=== PATIENT | female | born 1935 | race Caucasian/White ===

== ENCOUNTER 2016-08-25 23:23 | Emergency (ER) | payer MEDICARE ==
[~2016-08-25] VITALS: Ht 152.4 cm; Wt 39.0 kg
[~2016-08-25 23:23] MED LIST: ACTONEL35 MG PO; ATENOLOL25 MG PO; AZITHROMYCIN250 MG PO; CA CITRATE250 MG OR; COUMADIN5 MG PO; FISH OIL1000 MG PO; FLONASE NASAL50 MCG; FOLIC ACID400 MC1 OR; FUROSEMIDE40 MG PO; LEVOTHYROXIN50 MC1 PO; LISINOPRIL5 MG PO; MAXZIDE-2537.5 MG/TA PO; MUCINEX600 MG PO; MULTIVITAM10 OR; OCUVIT1 OR; RANITIDINE150 MG OR; TESSALON PER100 MG PO; VIT C250 MG PO; VITAMIN B COMPLEX; VITAMIN D1000 UNI2 PO; ZPAK OR
[2016-08-26] MEDS ORDERED: DIGOXIN0.125 MG PO (00:09)
[2016-08-26 01:15] VITALS: BP 118/58
== END 2016-08-26 01:15 | disposition left against medical advice (07) ==
LOC: ED 23:23
DX: R53.1 Weakness (principal); R06.02 Shortness of breath; I50.9 Heart failure, unspecified; I27.2 Other secondary pulmonary hypertension; I48.91 Unspecified atrial fibrillation; Z79.01 Long term (current) use of anticoagulants; Z95.2 Presence of prosthetic heart valve; Z91.19 Patient's noncompliance with other medical treatment and regimen

== ENCOUNTER 2016-08-28 08:19 | Emergency (ER) | payer MEDICARE ==
[2016-08-28] VITALS (7 sets, daily range): BP systolic 156–162; BP diastolic 65–70
[~2016-08-28] VITALS: Ht 152.4 cm; Wt 39.0 kg
[~2016-08-28 08:19] MED LIST changes: +DIGOXIN0.125 MG PO
[2016-08-28 08:53] LABS: HEMOGLOBIN 10.7 g/dl (12.0-16.0); IMMATURE GRANULOCYTES 0.9 % (0.0-1.0); MEAN CELL VOLUME 109.7 fL CALC (80.0-100.0); MEAN CORPUSCULAR HGB 34.5 pG CALC (26.0-32.0); MEAN CORPUSCULAR HGB CONC 31.5 g/L CALC (32.0-36.0); NEUT# 5.62 thou/uL (2.00-7.15); RED BLOOD COUNT 3.1 mill/uL (4.20-5.60); RED CELL DISTRI WIDTH 15.7 % (11.5-15.5)
[2016-08-28 09:09] LABS: ALBUMIN 4.4 g/dL (3.2-5.0); ALKALINE PHOSPHATASE 66 u/l (38-126); ANION GAP 19 (6-22 (CALC)); BILIRUBIN, TOTAL 2.4 mg/dL (0.0-1.4); BUN 24 mg/dL (8-23); BUN/CREATININE RATIO 27 (12-20 (CALC)); CARBON DIOXIDE 27 mmol/l (22-30); CHLORIDE 101 mmol/l (95-108); CREATININE 0.9 mg/dL (0.5-1.0); GFR 60 ML/MIN (>=60 (CALC)); GFR FOR AFR.AMER. > 60 ML/MIN (>=60 (CALC)); GLUCOSE 102 mg/dL (82-115); POTASSIUM 4.2 mmol/l (3.5-5.1); SGOT/AST 35 u/l (9-36); SGPT/ALT 28 u/l (11-66); SODIUM 143 mmol/l (137-146); TOTAL PROTEIN 8.7 g/dL (6.3-8.2)
[2016-08-28 09:20] LABS: MYOGLOBIN 44 ng/mL (0 - 62)
[2016-08-28] MEDS ORDERED: SPIRONOLACT25 MG PO (09:47)
[2016-08-28 09:49] LABS: PROTHROMBIN TIME 146.7 SECONDS (9.0-12.5)
[2016-08-28] MEDS ORDERED: ASPIRIN81 MG PO (09:52)
[2016-08-28] MEDS ORDERED: WARFARIN2.5 MG PO (09:53)
[2016-08-28] MEDS ORDERED: COUMADIN5 MG PO (09:54)
[2016-08-28] MEDS ORDERED: MIRALAX3350 NF PO (10:00)
== END 2016-08-28 13:52 ==
LOC: ED 08:19
PROVIDERS: Emergency Medicine
PROC: 30233K1 Transfusion of Nonautologous Frozen Plasma into Peripheral Vein, Percutaneous Approach (ICD-10-PCS; principal; 2016-08-28)
PROC: 30233K1 Transfusion of Nonautologous Frozen Plasma into Peripheral Vein, Percutaneous Approach (ICD-10-PCS; 2016-08-28)
DX: I61.9 Nontraumatic intracerebral hemorrhage, unspecified (principal); T45.515A Adverse effect of anticoagulants, initial encounter; I50.9 Heart failure, unspecified; I27.2 Other secondary pulmonary hypertension; I48.91 Unspecified atrial fibrillation; Z95.2 Presence of prosthetic heart valve